=== PATIENT | male | born 1995 ===

== ENCOUNTER 2017-11-29 02:21 | Emergency (ER) | payer MEDICAID, OTHER ==
[2017-11-29 02:56] VITALS: BP 142/85; PULSE 65; RESP 17; TEMP 98.9; O2SAT 98
[2017-11-29] MEDS ORDERED: Lidocaine 1% Inj (20ml) IJ STA (03:07)
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
[2017-11-29] MEDS ORDERED: Lidocaine 1% 20 MG/2 ML PF AMP ONE (03:16)
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
== END 2017-11-29 06:22 ==
LOC: H.ER 02:21
DX: S01.21XA Laceration without foreign body of nose, initial encounter (principal); S00.83XA Contusion of other part of head, initial encounter; V43.52XA Car driver injured in collision with other type car in traffic accident, initial encounter; Y92.410 Unspecified street and highway as the place of occurrence of the external cause; F17.200 Nicotine dependence, unspecified, uncomplicated

== ENCOUNTER 2017-11-29 20:39 | Emergency (ER) | payer SELFPAY ==
[2017-11-29 20:54] VITALS: BP 142/81; PULSE 84; RESP 16; TEMP 98.3; O2SAT 99
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
== END 2017-11-29 21:52 | disposition home or self-care (01) ==
LOC: H.ER 20:39
DX: Z00.00 Encounter for general adult medical examination without abnormal findings (principal)